=== PATIENT | male | born 1985 | race Caucasian/White ===

== ENCOUNTER 2019-05-19 08:53 | Emergency (ER) | payer BC, OTHER ==
[2019-05-19] MEDS ORDERED: Ondansetron 4 MG/2 ML SDV IVPUSH ONE (09:14)
[2019-05-19] MEDS ORDERED: Sodium Chloride 0.9% 1,000 ML IV ONE (09:15)
[2019-05-19] MEDS ORDERED: Sodium Chloride 0.9% 10 ML Syringe FLUSH PRN (09:23)
[2019-05-19 09:32] VITALS: BP 121/85; PULSE 96
--- NOTE | 2019-05-19 09:38 | EDM.PDOC ---
<Shelby Cool - Last Filed: 05/19/19 09:32> ED HPI GENERAL MEDICAL PROBLEM - General Chief Complaint: Gastrointestinal Problem Stated Complaint: LIGHTHEADED VOMTING AND DIARRHEA Time Seen by Provider: 05/19/19 09:11 Source of Information: Reports: Patient History Limitations: Reports: No Limitations - History of Present Illness INITIAL COMMENTS - FREE TEXT/NARRATIVE: Patient is a pleasant 34-year-old male who presents to the ED with complaints of nausea, vomiting, and diarrhea that started this morning at 0300. He reports he was on his way home from work when he started to feel sick. He has about 5-6 episodes of emesis and 15 episodes of diarrhea. He reports the vomiting has been pink in color and the stool has been a dark brown and watery. Denies seeing [place] blood in either emesis or stools. He reports epigastric pain that is a constant ache with occasional spasms. He rates the pain as a 7/10 at the time of exam. When he went to shower this morning at 0830 he became very lightheaded to the point he felt like he was going to pass out. He reports he got out of the shower and felt very hot and was pale. The lightheadedness subsided after a few minutes. He denies chest pain and shortness of breath. No recent illnesses or exposure to someone with similar symptoms. Of note, the last time the patient ate was around 0100 when he had a [employer]inn[employer] cinnamon roll while driving and a [employer]. Onset: Today, Sudden Onset Date: 05/19/19 Onset Time: 03:00 Location: Reports: Abdomen Quality: Reports: Ache Associated Symptoms: Reports: Nausea/Vomiting Upper Abdomen Pain Score (Numeric/FACES): 7 - Related Data Allergies Allergy/AdvReac Type Severity Reaction Status Date / Time No Known Allergies Allergy Verified 05/19/19 09:14 Home Meds: Home Meds . [No Known Home Meds] 05/19/19 [History] Past Medical History - Past Health History Medical/Surgical History: Denies Medical/Surgical History Respiratory History: Reports: Pneumonia, Recurrent Musculoskeletal History: Reports: Back Pain, Chronic, Other (See Below) Other Musculoskeletal History: has 2 herniated disc Social & Family History - Caffeine Use Caffeine Use: Reports: Soda - Recreational Drug Use Recreational Drug Use: No ED ROS GENERAL - Review of Systems Review Of Systems: See Below Constitutional: Reports: No Symptoms. Denies: Fever, Chills, Weakness, Fatigue HEENT: Reports: No Symptoms. Denies: Vertigo, Vision Change Respiratory: Reports: No Symptoms. Denies: Shortness of Breath, Cough Cardiovascular: Reports: No Symptoms. Denies: Chest Pain, Dyspnea on Exertion, Edema, Syncope GI/Abdominal: Reports: Abdominal Pain (epigastric region), Diarrhea (15 episodes of watery dark brown stool), Nausea, Vomiting (5-6 episodes of pink emesis). Denies: Black Stool, Bloody Stool, Hematemesis : Reports: No Symptoms. Denies: Dysuria, Flank Pain, Hematuria Musculoskeletal: Reports: Back Pain (mid to lower back- correlates to vomiting/ diarrhea). Denies: Muscle Pain Skin: Reports: No Symptoms. Denies: Rash, Erythema Neurological: Reports: Dizziness (and lightheaded while attempting to shower at 0830). Denies: Headache, Numbness, Syncope, Tingling, Weakness Psychiatric: Reports: No Symptoms ED EXAM, GI/ABD - Physical Exam Exam: See Below Exam Limited By: No Limitations General Appearance: Alert, WD/WN, No Apparent Distress Head: Atraumatic, Normocephalic Neck: Normal Inspection, Supple, Non-Tender, Full Range of Motion Respiratory/Chest: No Respiratory Distress, Lungs Clear, Normal Breath Sounds, No Accessory Muscle Use, Chest Non-Tender Cardiovascular: Normal Peripheral Pulses, Regular Rate, Rhythm, No Edema, No Gallop, No Murmur, No Rub GI/Abdominal Exam: Normal Bowel Sounds, Soft, No Organomegaly, No Distention, No Abnormal Bruit, No Mass, Tender (mildly tender LUQ and epigastric region) Back Exam: Normal Inspection, Full Range of Motion. No: CVA Tenderness (L), CVA Tenderness (R) Extremities: Normal Inspection, Normal Range of Motion, Non-Tender, Normal Capillary Refill, No Pedal Edema Neurological: Alert, Oriented, Normal Cognition, Normal Gait, Normal Reflexes, No Motor/Sensory Deficits Psychiatric: Normal Affect, Normal Mood Skin Exam: Warm, Dry, Intact, Normal Color, No Rash Course - Vital Signs Last Recorded V/S: Last Vital Signs Temp 97.4 F 05/19/19 09:04 Pulse 96 05/19/19 09:04 Resp 16 05/19/19 09:04 BP 121/85 05/19/19 09:04 Pulse Ox 100 05/19/19 09:04 - Orders/Labs/Meds Orders: Active Orders 24 hr Category Date Time Status Peripheral IV Care [RC] . DIRECTED Care 05/19/19 09:24 Active Sodium Chloride 0.9% [Saline Flush] Med 05/19/19 09:23 Active 10 ml FLUSH ASDIRECTED PRN ED Antiemetic Medication Reflex [OM.PC] Stat Oth 05/19/19 09:24 Ordered Peripheral IV Insertion Adult [OM.PC] Stat Oth 05/19/19 09:23 Ordered Medication Orders Sodium Chloride (Saline Flush) 10 ml FLUSH ASDIRECTED PRN PRN Reason: Keep Vein Open Last Admin: 05/19/19 09:25 Dose: 10 ml Labs: Laboratory Tests 05/19/19 05/19/19 05/19/19 Range/Units 09:15 09:15 10:28 WBC 13.13 H (4.23-9.07) K/mm3 RBC 6.30 H (4.63-6.08) M/mm3 Hgb 17.3 (13.7-17.5) gm/dl Hct 50.1 (40.1-51.0) % MCV 79.5 D (79.0-92.2) fl MCH 27.5 (25.7-32.2) pg MCHC 34.5 (32.2-35.5) g/dl RDW Std Deviation 40.5 (35.1-43.9) fL Plt Count 240 (163-337) K/mm3 MPV 10.7 (9.4-12.3) fl Neut % (Auto) 82.9 H (34.0-67.9) % Lymph % (Auto) 5.6 L (21.8-53.1) % [place] % (Auto) 10.4 (5.3-12.2) % Eos % (Auto) 0.8 (0.8-7.0) Baso % (Auto) 0.1 (0.1-1.2) % Neut # (Auto) 10.89 H (1.78-5.38) K/mm3 Lymph # (Auto) 0.73 L (1.32-3.57) K/mm3 [place] # (Auto) 1.37 H (0.30-0.82) K/mm3 Eos # (Auto) 0.10 (0.04-0.54) K/mm3 Baso # (Auto) 0.01 (0.01-0.08) K/mm3 Manual Slide Review Abnormal smear Sodium 143 (136-145) mEq/L Potassium 4.2 (3.5-5.1) mEq/L Chloride 105 (98-107) mEq/L Carbon Dioxide 25 (21-32) mEq/L Anion Gap 17.2 H (5-15) BUN 19 H (7-18) mg/dL Creatinine 1.1 (0.7-1.3) mg/dL Est Cr Clr Drug Dosing 101.90 mL/min Estimated GFR (MDRD) > 60 (>60) mL/min BUN/Creatinine Ratio 17.3 (14-18) Glucose 125 H (74-106) mg/dL Calcium 9.3 (8.5-10.1) mg/dL Total Bilirubin 1.4 H (0.2-1.0) mg/dL AST 22 (15-37) U/L ALT 43 (16-63) U/L Alkaline Phosphatase 82 (46-116) U/L Total Protein 8.0 (6.4-8.2) g/dl Albumin 4.4 (3.4-5.0) g/dl Globulin 3.6 gm/dL Albumin/Globulin Ratio 1.2 (1-2) Lipase 86 (73-393) U/L Urine Color Yellow (Yellow) Urine Appearance Clear (Clear) Urine pH 6.0 (5.0-8.0) Ur Specific [place] > or = 1.030 (1.005-1.030) Urine Protein 2+ H (Negative) Urine Glucose (UA) Negative (Negative) Urine Ketones Negative (Negative) Urine Occult Blood Negative (Negative) Urine Nitrite Negative (Negative) Urine Bilirubin Negative (Negative) Urine Urobilinogen 0.2 (0.2-1.0) Ur Leukocyte Esterase Negative (Negative) U Hyaline Cast (Auto) 0-5 (0-5) /lpf Urine RBC 0-5 (0-5) /hpf Urine WBC 0-5 (0-5) /hpf Ur Squamous Epith Cells 0-5 (0-5) /hpf Urine Bacteria Few (FEW) /hpf Urine Mucus Many H (FEW) /hpf Meds: Medications Generic Name Dose Route Start Last Admin Trade Name Freq PRN Reason Stop Dose Admin Sodium Chloride 10 ml 05/19/19 09:23 05/19/19 09:25 Saline Flush FLUSH 10 ml ASDIRECTED PRN Administration Keep Vein Open Discontinued Medications Generic Name Dose Route Start Last Admin Trade Name Freq PRN Reason Stop Dose Admin Sodium Chloride 1,000 mls @ 999 mls/hr 05/19/19 09:15 05/19/19 09:21 Normal Saline IV 05/19/19 10:15 999 mls/hr ONETIME ONE Administration Ondansetron HCl 4 mg 05/19/19 09:14 05/19/19 09:20 Zofran IVPUSH 05/19/19 09:15 4 mg ONETIME ONE Administration Departure - Departure Disposition: Home, Self-Care 01 Clinical Impression: Gastroenteritis, Dehydration - Discharge Information Referrals: PCP,None [Primary Care Provider] - Forms: ED Department Discharge Additional Instructions: Drink plenty of fluids. Take zofran every 6 hours as needed for nausea and vomiting. Please return if you are worse. Sepsis Event Note - Evaluation Sepsis Screening Result: No Definite Risk - Focused Exam Vital Signs: Vital Signs Temp Pulse Resp BP Pulse Ox 05/19/19 09:04 97.4 F 96 16 121/85 100 Date Exam was Performed: 05/19/19 Time Exam was Performed: 09:32 - My Orders Last 24 Hours: My Active Orders 05/19/19 09:23 Sodium Chloride 0.9% [Saline Flush] 10 ml FLUSH ASDIRECTED PRN Peripheral IV Insertion Adult [OM.PC] Stat 05/19/19 09:24 Peripheral IV Care [RC] . DIRECTED ED Antiemetic Medication Reflex [OM.PC] Stat - Assessment/Plan Last 24 Hours: My Active Orders 05/19/19 09:23 Sodium Chloride 0.9% [Saline Flush] 10 ml FLUSH ASDIRECTED PRN Peripheral IV Insertion Adult [OM.PC] Stat 05/19/19 09:24 Peripheral IV Care [RC] . DIRECTED ED Antiemetic Medication Reflex [OM.PC] Stat <Jeff Collado - Last Filed: 05/19/19 11:07> Course - Re-Assessments/Exams Free Text/Narrative Re-Assessment/Exam: 05/19/19 11:05 I examined the patient myself and I agree with Shelby's assessment and plan. I ordered an IV NS 1L bolus, zofran 4mg IV, labs and UA. His WBC was slightly elevated at 13.13. His anion gap is elevated at 17.2. His BUN is elevated at 19. His glucose is 125. His UA shows no UTI. He has gastroenteritis and dehydration. I will get him on some zofran. Departure - Departure Time of Disposition: 11:10 Condition: Good - Discharge Information *PRESCRIPTION DRUG MONITORING PROGRAM REVIEWED*: Not Applicable *COPY OF PRESCRIPTION DRUG MONITORING REPORT IN PATIENT RAZ: Not Applicable Sepsis Event Note - Focused Exam Date Exam was Performed: 05/19/19 Time Exam was Performed: 11:05
== END 2019-05-19 11:40 | disposition home or self-care (01) ==
LOC: JD.ED 08:53
DX: K52.9 Noninfective gastroenteritis and colitis, unspecified (principal); E86.0 Dehydration
CPT/HCPCS: 36415; 80053; 81001; 83690; 85025; 96361; 96374; 99284; J2405; J7030; 99283

== ENCOUNTER 2021-05-27 20:57 | Emergency (ER) | payer OTHER, BC ==
[2021-05-27 21:32] VITALS: BP 143/104; PULSE 96
[2021-05-27] MEDS ORDERED: Orphenadrine 100 MG Tab.ER PO STA (21:49)
[2021-05-27] MEDS ORDERED: Ketorolac 60 MG/2 ML SDV IM ONE (21:49)
== END 2021-05-27 23:00 | disposition home or self-care (01) ==
LOC: JD.ED 20:57
DX: M54.42 Lumbago with sciatica, left side (principal); Z72.0 Tobacco use; Z79.899 Other long term (current) drug therapy
CPT/HCPCS: 73502; 96372; 99283; A9270; J1885; 99284

== ENCOUNTER 2022-01-09 14:18 | Emergency (ER) | payer BC ==
[2022-01-09 16:24] VITALS: BP 128/67; PULSE 72
== END 2022-01-09 17:00 | disposition home or self-care (01) ==
LOC: JD.ED 14:18
DX: S92.144A Nondisplaced dome fracture of right talus, initial encounter for closed fracture (principal); Z79.899 Other long term (current) drug therapy; X50.1XXA Overexertion from prolonged static or awkward postures, initial encounter
CPT/HCPCS: 73610-26-RT; 73610-RT; 99283

== ENCOUNTER 2023-04-04 22:22 | Emergency (ER) | payer BC ==
[2023-04-04] MEDS ORDERED: Ondansetron 4 MG/2 ML SDV IVPUSH ONE (23:29)
[2023-04-04] MEDS ORDERED: Morphine 4 MG/ML Syringe IVPUSH ONE (23:29)
[2023-04-04] MEDS ORDERED: Sodium Chloride 0.9% 1,000 ML IV ONE (23:29)
[2023-04-04] MEDS ORDERED: Sodium Chloride 0.9% 10 ML Syringe FLUSH PRN (23:29)
[2023-04-04 23:35] LABS: BASOPHILS PERCENT AUTO 0.3 % (0.0-1.0); EOSINOPHILS ABSOLUTE AUTO 0.2 K/mm3 (0.0-0.4); EOSINOPHILS PERCENT AUTO 2.3 % (0.0-6.0); HEMATOCRIT 45.5 % (42.0-52.0); HEMOGLOBIN 15.1 gm/dl (14.0-18.0); IMMATURE GRAN ABSOLUTE AUTO 0.03 K/mm3 (0.00-0.05); IMMATURE GRAN PERCENT AUTO 0.3 % (0.0-0.4); LYMPHOCYTES ABSOLUTE AUTO 2.5 K/mm3 (1.0-4.8); LYMPHOCYTES PERCENT AUTO 28.3 % (24.0-44.0); MEAN CORPUSCULAR HGB CONC 33.2 g/dl (32.0-36.0); MEAN CORPUSCULAR VOLUME 84.4 fl (83.0-99.0); MEAN PLATELET VOLUME 10.3 fl (9.4-12.4); MONOCYTES ABSOLUTE AUTO 1.1 K/mm3 (0.0-0.8); MONOCYTES PERCENT AUTO 11.9 % (0.0-8.0); NEUTROPHILS PERCENT AUTO 56.9 % (41.0-71.0); PLATELET COUNT,PLT 217 K/mm3 (150-400); RED BLOOD CELL COUNT 5.39 M/mm3 (4.52-5.90)
[2023-04-04 23:45] LABS: ALANINE AMINOTRANSFERASE,ALT 40 U/L (16-63); ALBUMIN 3.5 g/dl (3.4-5.0); ALKALINE PHOSPHATASE 73 U/L (46-116); ANION GAP 12.8 (5-15); ASPARTATE AMNIOTRANSFERASE,AST 20 U/L (15-37); BILIRUBIN TOTAL 0.6 mg/dL (0.2-1.0); BLOOD UREA NITROGEN,BUN 18 mg/dL (7-18); BUN/CREATININE RATIO 13.8 (14-18); C-REACTIVE PROTEIN <0.2 mg/dL (<1.0); CALCIUM 9.2 mg/dL (8.5-10.1); CARBON DIOXIDE,CO2 30 mEq/L (21-32); CHLORIDE,CL 104 mEq/L (98-107); CREATININE 1.3 mg/dL (0.7-1.3); EST CRCL DRUG DOSING (CG) 82.91 mL/min; ESTIMATED GFR 71 mL/min (>60); GLUCOSE RANDOM 137 mg/dL (70-99); LIPASE 31 U/L (16-77); POTASSIUM,K 3.8 mEq/L (3.5-5.1); PROTEIN TOTAL,TP 7.1 g/dl (6.4-8.2); SODIUM,NA 143 mEq/L (136-145)
[2023-04-05] MEDS ORDERED: Aluminum Hydroxide/Magnesium Hydroxide/Simethicone Susp 30 ML Cup PO ONE
[2023-04-05] MEDS ORDERED: Sucralfate Suspension 1 GM/10 ML Cup PO ONE
[2023-04-05] MEDS ORDERED: Ondansetron 4 MG/2 ML SDV IVPUSH ONE (00:06)
[2023-04-05] MEDS ORDERED: Morphine 4 MG/ML Syringe IVPUSH ONE (00:55)
[2023-04-05] MEDS ORDERED: Sodium Chloride 0.9% 10 ML Syringe FLUSH ONE (01:01)
[2023-04-05] MEDS ORDERED: Iopamidol 612 MG/ML 100 ML Bottle IVPUSH ONE (01:01)
[2023-04-05 01:36] VITALS: BP 134/92; PULSE 82
== END 2023-04-05 01:25 | disposition home or self-care (01) ==
LOC: JD.ED 22:22
DX: R10.13 Epigastric pain (principal); R11.2 Nausea with vomiting, unspecified
CPT/HCPCS: 36415; 80053; 82248; 83605; 83690; 85025; 86140; 96361; 96374; 96375; 96376; 99284; A9270; J2270; J2405; J3490; J7030; 99283

== ENCOUNTER 2024-04-03 23:37 | Emergency (ER) | payer BC ==
[2024-04-03] MEDS ORDERED: Naloxone 0.4 MG/ML SDV IVPUSH PRN (23:57)
[2024-04-03] MEDS: HYDROmorphone 0.5 MG/0.5 ML Syringe IVPUSH ONE (23:57)
[2024-04-03] MEDS: Sodium Chloride 0.9% 10 ML Syringe FLUSH ONE (23:58)
[2024-04-03] MEDS: Sodium Chloride 0.9% 10 ML Syringe FLUSH PRN (23:58)
[2024-04-03] MEDS: Ondansetron 4 MG/2 ML SDV IVPUSH ONE (23:58)
[2024-04-03] MEDS: Ondansetron 4 MG/2 ML SDV ONE (23:59)
[2024-04-03] MEDS: HYDROmorphone 0.5 MG/0.5 ML Syringe ONE (23:59)
[2024-04-04 00:01] LABS: BASOPHILS PERCENT AUTO 0.3 % (0.0-1.0); EOSINOPHILS ABSOLUTE AUTO 0.1 K/mm3 (0.0-0.4); EOSINOPHILS PERCENT AUTO 0.5 % (0.0-6.0); IMMATURE GRAN ABSOLUTE AUTO 0.04 K/mm3 (0.00-0.05); IMMATURE GRAN PERCENT AUTO 0.3 % (0.0-0.4); LYMPHOCYTES ABSOLUTE AUTO 2.3 K/mm3 (1.0-4.8); LYMPHOCYTES PERCENT AUTO 15.9 % (24.0-44.0); MEAN CORPUSCULAR HEMOGLOBIN 27.6 pg (28.0-32.0); MEAN CORPUSCULAR HGB CONC 33.3 g/dl (32.0-36.0); MEAN CORPUSCULAR VOLUME 82.9 fl (83.0-99.0); MEAN PLATELET VOLUME 10.5 fl (9.4-12.4); MONOCYTES ABSOLUTE AUTO 1.3 K/mm3 (0.0-0.8); MONOCYTES PERCENT AUTO 8.7 % (0.0-8.0); NEUTROPHILS PERCENT AUTO 74.3 % (41.0-71.0); PLATELET COUNT,PLT 250 K/mm3 (150-400); RED BLOOD CELL COUNT 5.79 M/mm3 (4.52-5.90); WHITE BLOOD CELL COUNT,WBC 14.76 K/mm3 (3.9-11.3)
[2024-04-04] MEDS: Iopamidol 755 Mg/ML 100 ML Bottle IVPUSH ONE (00:07)
[2024-04-04] MEDS: Sodium Chloride 0.9% 100 ML IV SCH (00:07)
[2024-04-04 00:20] LABS: INR 0.97; PROTHROMBIN TIME 10.3 SECONDS (9.7-12.0)
[2024-04-04 00:21] LABS: PTT,PARTIAL THROMBOPLSTIN TIME 26.1 SECONDS (21.7-31.4)
[2024-04-04] MEDS: Sodium Chloride 0.9% 1,000 ML IV ONE (00:21)
[2024-04-04 00:26] LABS: A/G RATIO 1.3 (1-2); ALANINE AMINOTRANSFERASE,ALT 51 U/L (16-63); ALBUMIN 4.4 g/dl (3.4-5.0); ALKALINE PHOSPHATASE 87 U/L (46-116); ASPARTATE AMNIOTRANSFERASE,AST 20 U/L (15-37); BILIRUBIN TOTAL 0.6 mg/dL (0.2-1.0); BLOOD UREA NITROGEN,BUN 17 mg/dL (7-18); BUN/CREATININE RATIO 13.1 (14-18); CALCIUM 9.3 mg/dL (8.5-10.1); CARBON DIOXIDE,CO2 28 mEq/L (21-32); CHLORIDE,CL 102 mEq/L (98-107); CREATININE 1.3 mg/dL (0.7-1.3); EST CRCL DRUG DOSING (CG) 79.64 mL/min; ESTIMATED GFR 71 mL/min (>60); GLUCOSE RANDOM 140 mg/dL (70-99); LACTIC ACID 1.3 mmol/L (0.4-2.0); LIPASE 39 U/L (16-77); PROTEIN TOTAL,TP 7.8 g/dl (6.4-8.2); SODIUM,NA 140 mEq/L (136-145); TROPONIN I HIGH SENSITIVITY < 4 pg/mL (<=76)
[2024-04-04] MEDS: HYDROmorphone 0.5 MG/0.5 ML Syringe IVPUSH ONE (01:27)
[2024-04-04] MEDS: Ondansetron 4 MG/2 ML SDV IVPUSH ONE (02:24)
[2024-04-04 04:04] VITALS: BP 131/77; PULSE 67
== END 2024-04-04 03:55 | disposition home or self-care (01) ==
LOC: JD.ED 23:37
DX: K80.20 Calculus of gallbladder without cholecystitis without obstruction (principal)
CPT/HCPCS: 36415; 71275; 74177; 76705; 80053; 83605; 83690; 83735; 84484; 85025; 85610; 85730; 93005; 96361; 96374; 96375; 96376; 99284; J2405; J7030; Q9967; 93010

== ENCOUNTER 2024-05-20 23:55 | Emergency (ER) | payer BC ==
[2024-05-21] MEDS ORDERED: Sodium Chloride 0.9% 10 ML Syringe FLUSH PRN (00:35)
[2024-05-21] MEDS: HYDROmorphone 0.5 MG/0.5 ML Syringe ONE (00:50)
[2024-05-21] MEDS: HYDROmorphone 0.5 MG/0.5 ML Syringe IVPUSH ONE (00:51)
[2024-05-21] MEDS: Ondansetron 4 MG/2 ML SDV ONE (00:51)
[2024-05-21] MEDS: Ondansetron 4 MG/2 ML SDV IVPUSH ONE (00:51)
[2024-05-21 00:52] LABS: BASOPHILS PERCENT AUTO 0.2 % (0.0-1.0); EOSINOPHILS ABSOLUTE AUTO 0.1 K/mm3 (0.0-0.4); EOSINOPHILS PERCENT AUTO 0.6 % (0.0-6.0); HEMATOCRIT 49.7 % (42.0-52.0); HEMOGLOBIN 16.5 gm/dl (14.0-18.0); IMMATURE GRAN ABSOLUTE AUTO 0.05 K/mm3 (0.00-0.05); IMMATURE GRAN PERCENT AUTO 0.4 % (0.0-0.4); LYMPHOCYTES ABSOLUTE AUTO 1.5 K/mm3 (1.0-4.8); LYMPHOCYTES PERCENT AUTO 11.8 % (24.0-44.0); MEAN CORPUSCULAR HEMOGLOBIN 27.5 pg (28.0-32.0); MEAN CORPUSCULAR HGB CONC 33.2 g/dl (32.0-36.0); MEAN CORPUSCULAR VOLUME 82.8 fl (83.0-99.0); MEAN PLATELET VOLUME 10.7 fl (9.4-12.4); MONOCYTES ABSOLUTE AUTO 0.9 K/mm3 (0.0-0.8); PLATELET COUNT,PLT 240 K/mm3 (150-400); WHITE BLOOD CELL COUNT,WBC 12.49 K/mm3 (3.9-11.3)
[2024-05-21 01:17] LABS: A/G RATIO 1.2 (1-2); ALANINE AMINOTRANSFERASE,ALT 50 U/L (16-63); ALBUMIN 4.3 g/dl (3.4-5.0); ALKALINE PHOSPHATASE 81 U/L (46-116); ANION GAP 14.9 (5-15); ASPARTATE AMNIOTRANSFERASE,AST 22 U/L (15-37); BILIRUBIN TOTAL 0.7 mg/dL (0.2-1.0); BLOOD UREA NITROGEN,BUN 18 mg/dL (7-18); BUN/CREATININE RATIO 12.9 (14-18); CALCIUM 9.6 mg/dL (8.5-10.1); CARBON DIOXIDE,CO2 26 mEq/L (21-32); CHLORIDE,CL 105 mEq/L (98-107); CREATININE 1.4 mg/dL (0.7-1.3); EST CRCL DRUG DOSING (CG) 76.21 mL/min; ESTIMATED GFR 65 mL/min (>60); GLUCOSE RANDOM 135 mg/dL (70-99); LIPASE 27 U/L (16-77); POTASSIUM,K 3.9 mEq/L (3.5-5.1); PROTEIN TOTAL,TP 7.8 g/dl (6.4-8.2); SODIUM,NA 142 mEq/L (136-145)
[2024-05-21 01:25] LABS: TROPONIN I HIGH SENSITIVITY < 4 pg/mL (<=76)
[2024-05-21 02:31] VITALS: BP 130/89; PULSE 88
== END 2024-05-21 02:31 | disposition home or self-care (01) ==
LOC: JD.ED 23:55
DX: K80.20 Calculus of gallbladder without cholecystitis without obstruction (principal); Z88.6 Allergy status to analgesic agent
CPT/HCPCS: 36415; 76705; 80053; 83690; 84484; 85025; 85730; 93005; 96374; 99284; J2405; 93010

== ENCOUNTER 2024-05-27 09:43 | Day surgery (SDC) | payer BC ==
[2024-05-27] MEDS ORDERED: Rocuronium 50 MG/5 ML Vial ONE (10:26)
[2024-05-27] MEDS ORDERED: Ondansetron 4 MG/2 ML SDV ONE (10:26)
[2024-05-27] MEDS ORDERED: Lidocaine 1% 4 ML ONE (10:26)
[2024-05-27] MEDS ORDERED: dexmedeTOMIDine HCl 200 MCG/2 ML SDV ONE (10:26)
[2024-05-27] MEDS ORDERED: Ketorolac 30 MG/ML SDV ONE (10:26)
[2024-05-27] MEDS ORDERED: ceFAZolin 2 GM Vial ONE (10:26)
[2024-05-27] MEDS ORDERED: Lactated Ringers 1,000 ML ONE (10:26)
[2024-05-27] MEDS ORDERED: Dexamethasone 4 MG/ML 5 ML MDV ONE (10:26)
[2024-05-27] MEDS ORDERED: Midazolam 1 MG/ML 2 ML SDV ONE (10:26)
[2024-05-27] MEDS ORDERED: ePHEDrine 50 MG/ML SDV ONE (11:27)
[2024-05-27] MEDS ORDERED: Ondansetron 4 MG/2 ML SDV IVPUSH PRN (11:33)
[2024-05-27] MEDS ORDERED: fentaNYL 100 MCG/2 ML SDV IVPUSH PRN (11:33)
[2024-05-27] MEDS ORDERED: fentaNYL 250 MCG/5 ML SDV ONE (11:35)
[2024-05-27] MEDS ORDERED: Propofol 200 MG/20 ML SDV ONE (11:35)
[2024-05-27] MEDS ORDERED: Sugammadex Sodium 200 MG/2 ML VIAL IV ONE (11:35)
[2024-05-27] MEDS ORDERED: HYDROmorphone 0.5 MG/0.5 ML Syringe ONE (11:39)
[2024-05-27] MEDS ORDERED: Labetalol 100 MG/20 ML MDV ONE (11:44)
[2024-05-27] MEDS: Bupivacaine 0.5% 30 ML SDV ONE (12:41)
[2024-05-27] MEDS: EPINEPHrine 1 MG/ML SDV ONE (12:41)
[2024-05-27] MEDS ORDERED: Lactated Ringers 1,000 ML IV ONE (13:00)
[2024-05-27] MEDS: HYDROmorphone 0.5 MG/0.5 ML Syringe IVPUSH PRN (14:31)
[2024-05-27] MEDS: oxyCODONE 5 MG Tab PO PRN (15:35)
[2024-05-27 16:38] VITALS: BP 130/74; PULSE 76
== END 2024-05-27 16:35 | disposition home or self-care (01) ==
LOC: JD.SDS 09:43
PROVIDERS: ATTEND Surgery
DX: K80.12 Calculus of gallbladder with acute and chronic cholecystitis without obstruction (principal); Z79.899 Other long term (current) drug therapy
CPT/HCPCS: 00790; A9270-GY; J0171; J0665; J0690; J1100; J1885; J1920; J2003; J2250; J2405; J2704; J3010; J3490; J7120